=== PATIENT | female | born 1965 | race Caucasian/White ===

== ENCOUNTER 2019-10-21 08:15 | Emergency (ER) | payer OTHER, SELFPAY ==
--- NOTE | 2019-10-21 08:24 | ED.WOUNDLAC ---
HPI - Wound/Laceration General Chief Complaint: Wound/Laceration Stated Complaint: non healing wound left leg Time Seen by Provider: 10/21/19 08:38 Source: patient and RN notes reviewed Mode of arrival: ambulatory Limitations: no limitations History of Present Illness HPI narrative: 54-year-old female presents with concern for a wound on her left lower leg that seems to be getting worse. She reports a blister that started approximately 10 days ago. She reports she poked at the blister and it spread. She reports the blister popped several days ago and has been getting red around the edges. She reports 2 small satellite blisters that are undisturbed. She denies fever, foot pain, ankle pain, decreased sensation, decreased range of motion of the foot or ankle. Extremity Location: Left: lower leg Related Data Home Medications Medication Instructions Recorded Confirmed amlodipine 10 mg PO DAILY 10/21/19 10/21/19 aspirin [Aspirin Low Dose] 81 mg PO DAILY 10/21/19 10/21/19 mycophenolate sodium PO 10/21/19 prednisone 5 mg PO DAILY 10/21/19 10/21/19 tacrolimus 1 mg PO Q12H 10/21/19 10/21/19 Allergies Allergy/AdvReac Type Severity Reaction Status Date / Time No Known Allergies Allergy Unverified 07/28/17 11:48 Review of Systems Review of Systems: Narrative: CONSTITUTIONAL: Denies malaise, chills, sweats, or fever. CARDIOVASCULAR: Denies edema. RESPIRATORY: Denies dyspnea. SKIN: 7 cm x 4 cm oval-shaped popped blister, surface skin intact with surrounding erythema, induration less than 0.5 cm. 2 satellite blisters, intact, clear fluid-filled approximately 1 cm x 0.5 cm each with no surrounding erythema, edema, induration. MUSCULOSKELETAL: Denies ankle pain, foot pain NEUROLOGIC: Denies numbness, weakness All systems reviewed & are unremarkable except as noted in HPI and below PMFSH Family History Family History (Updated 05/18/17 @ 15:41 by DOCTOR UNKNOWN) Mother Family history of polycystic kidney disease, Onset Age: 76 Family history of kidney disease, Onset Age: 76 Father Family history of malignant melanoma, Onset Age: 70 Social History Social History Smoking status: Never smoker Alcohol intake: never Gender identity (if verbalized by the patient): Female Comments At time of signature, agree with nursing past medical, surgical, social and family history. There is no relevant family history pertinent to the presenting complaint Exam Narrative: Exam Narrative: GENERAL: Well-appearing, well-nourished, and in no acute distress. HEAD: Normocephalic, atraumatic. EYES: PERRLA, conjunctivae clear, and EOMI. No nystagmus. ENT: Nares clear, turbinates pink, no rhinorrhea or epistaxis. Mucous membranes moist. TM pearly maynard with sharp light reflex bilaterally; no tragal tenderness. Oropharynx without erythema or lesions. Tonsils not enlarged and without exudate. NECK: Supple. No lymphadenopathy. No jugular venous distension, thyromegaly, or carotid bruits. Carotids were easily palpable bilaterally. CHEST: No respiratory distress. Clear to auscultation. No bony deformities, no asymmetry. Speaks in full sentences. HEART: Regular rate and rhythm. No murmur heard. Normal peripheral pulses. ABDOMEN: Soft, nontender, nondistended, normal active bowel sounds, no palpable masses. EXTREMITIES: Normal range of motion. No edema. Normal strength and sensation. SKIN: Warm, dry, no rash. NEURO: Alert and oriented x3. No focal deficits. Cranial nerves II through XII grossly intact PSYCH: Normal mood and affect Course Course Emergency Course: Patient is aware of diagnosis, understands and agrees to treatment plan. Anticipatory guidance given. Patient agrees to follow-up as directed and is aware of reasons to seek care at the emergency department. Portions of this record may have been created with voice recognition software Vital Signs Vital signs: Vital Signs Temperature 98.3 F 10/21/19 08:31
[2019-10-21 08:31] VITALS: BP 145/77; PULSE 78; RESP 18; TEMP 36.8; O2SAT 99
== END 2019-10-21 08:48 | disposition home or self-care (01) ==
PROVIDERS: Emergency Provider Nurse Practitioner; PCP Emergency Medicine
DX: L08.9 Local infection of the skin and subcutaneous tissue, unspecified (principal); S81.802A Unspecified open wound, left lower leg, initial encounter; X58.XXXA Exposure to other specified factors, initial encounter; I10 Essential (primary) hypertension; Z94.0 Kidney transplant status
CPT/HCPCS: 99213; G0463

== ENCOUNTER 2021-05-29 09:49 | Emergency (ER) | payer OTHER, SELFPAY ==
[2021-05-29 10:04] VITALS: BP 158/80; PULSE 74; RESP 16; TEMP 35.7; O2SAT 100
--- NOTE | 2021-05-29 10:09 | ED.URI ---
HPI - URI/Sore Throat General Chief Complaint: Upper Respiratory Infection Stated Complaint: cough Source: patient and RN notes reviewed Mode of arrival: ambulatory Limitations: no limitations History of Present Illness HPI Narrative: Alyx is a 56-year-old female patient ambulated into the [facility]. Patient states 05/21/2021 she did developed a frontal headache, sinus congestion, which she states went into her chest 2 days later complains of cough. She denies any fever or chills. Patient denies ever being a smoker states she does live with a smoker. She does have a history of a kidney transplant. She has had her flu and Covid vaccines. Patient also complains of left ear pressure MD elicited complaint: cough Related Data Home Medications Medication Instructions Recorded Confirmed aspirin [Aspirin Low Dose] 81 mg PO DAILY 10/21/19 10/21/19 mycophenolate sodium PO 10/21/19 prednisone 5 mg PO DAILY 10/21/19 10/21/19 tacrolimus 1 mg PO Q12H 10/21/19 10/21/19 lisinopril 05/29/21 Allergies Allergy/AdvReac Type Severity Reaction Status Date / Time No Known Allergies Allergy Unverified 07/28/17 11:48 Review of Systems Review of Systems: CONSTITUTIONAL: Denies body aches, fever, chills, or sweats. EYES: Denies visual changes, redness, or discharge. ENT: Denies rhinorrhea,+ congestion, sore throat, o+ left otalgia. CARDIOVASCULAR: Denies chest pain, palpitations, or edema. RESPIRATORY: + cough denies dyspnea. GASTROINTESTINAL: Denies abdominal pain, nausea, vomiting, or diarrhea. GENITOURINARY: Denies dysuria or hematuria. SKIN: Denies rash, itching, or wounds. MUSCULOSKELETAL: Denies back pain, joint pain, or myalgia. NEUROLOGIC: Denies headache, numbness, tingling, or weakness. PSYCH: Denies depression or anxiety. [facility] Family History Family History Mother Family history of polycystic kidney disease, Onset Age: 76 Family history of kidney disease, Onset Age: 76 Father Family history of malignant melanoma, Onset Age: 70 Social History Social History Smoking status: Never smoker Alcohol intake: never Gender identity (if verbalized by the patient): Female Comments At time of signature, I have reviewed and agree with nursing past medical, surgical, social and family history unless otherwise noted. Please see nursing chart for further information. There is no relevant family history pertinent to the presenting complaint Exam Narrative: GENERAL: Well-appearing, well-nourished, and in no acute distress. HEAD: Normocephalic, atraumatic. EYES: EOMI. No redness or drainage. Conjunctivae normal. ENT: Mucous membranes pink and moist. Nasal passages erythemic with clear rhinorrhea. Frontal sinus pain with palpation. Left TM is opaque with mild bulging no erythema. Right TM is dull with minimal bulging no erythema. Posterior pharynx is erythemic with mild postnasal drainage noted. Uvula midline. NECK: Normal AROM. Supple. Right anterior cervical lymphadenopathy. CHEST: No respiratory distress. Minimal expiratory wheezing noted in bilateral upper lobes. MUSCULOSKELETAL: No bony tenderness. EXTREMITIES: Normal range of motion. No edema. SKIN: Warm, dry, no rash. Capillary refill normal. Normal skin turgor. NEURO: No focal deficits. Alert and oriented x3. Gait steady. PSYCH: Normal affect. No signs of depression or anxiety. Course Vital Signs Vital signs: Vital Signs Temperature 35.7 C L 05/29/21 10:04 Pulse Rate 74 05/29/21 10:04 Respiratory Rate 16 05/29/21 10:04 Blood Pressure 158/80 H 05/29/21 10:04 Pulse Oximetry 100 05/29/21 10:04 Temperature 35.7 C L 05/29/21 10:04 Pulse Rate 74 05/29/21 10:04 Respiratory Rate 16 05/29/21 10:04 Blood Pressure 158/80 H 05/29/21 10:04 Pulse Oximetry 100 05/29/21 10:04 Reviewed. Pt has b
== END 2021-05-29 10:29 | disposition home or self-care (01) ==
PROVIDERS: Emergency Provider Nurse Practitioner Family; PCP Emergency Medicine
DX: J40 Bronchitis, not specified as acute or chronic (principal); Z94.0 Kidney transplant status
CPT/HCPCS: 99213; G0463